=== PATIENT | female | born 1965 | race Hispanic/Latino ===

== ENCOUNTER → 2024-01-24 | Outpatient (CLI) | payer MEDICARE ==
[~2024-01-24] MED LIST: ACET-2743 PO; ACET1TAB12 PO; AEC81 PO; ALPR0.5T8 PO; CEPH500B PO; CETI10CA5 PO; DILT180C88 PO; FISH1CAP20 PO; GLUC-145 PO; LINA5TAB PO; METF-910 PO; MINO50CA6 PO; NITR0.4T50 SL; OLME20TA73 PO; OMEP20CA12 PO; PRAV10TA39 PO; SULF500T8 PO; SUVO15TA PO; TURM1POW MC; ZOLP5TAB2 PO; [UNRECOGNIZED DRUG - CODE] PO
[2024-01-24 09:52] LABS: CREATININE 0.8 mg/dL (0.5-1.0)
== END | disposition home or self-care (01) ==
LOC: LAB 09:09
PROVIDERS: ATTEND Surgery
DX: R14.0 Abdominal distension (gaseous) (principal)
CPT/HCPCS: 36415; 82565; 84520

== ENCOUNTER → 2024-01-28 | Outpatient (CLI) | payer MEDICARE ==
[~2024-01-28] MED LIST changes: +IOHEXOL-350 75 ML VIAL IV ONE
--- NOTE | 2024-01-28 12:54 | HMCIMG ---
CT ABDOMEN/PELVIS W/CONTRAST REASON: ABD DISTENSION COMPARISON: 11/14/2015 TECHNIQUE: Images are obtained from lung bases to the symphysis pubis following IV contrast, 75 cc Omnipaque 350. Oral contrast was administered as well. FINDINGS: Lung bases are clear. There are no focal liver lesions. There is a 4.2 cm cyst left kidney. There are normal-appearing kidneys.. Spleen and pancreas appear unremarkable. There has been a previous cholecystectomy. Bowel loops appear unremarkable. The appendix was not separately identified. There is no secondary CT evidence of acute appendicitis such as appendicolith or phlegmon. There is no evidence of free fluid or intraperitoneal air. There are no focal fluid collections. Aorta and retroperitoneum appear normal as do pelvic soft tissue structures. Uterus is absent. The anterior abdominal wall is intact. Osseous structures appear unremarkable. IMPRESSION: 1. Absent gallbladder and uterus. 2. 4.2 cm left renal cyst. 3. No acute finding in the abdomen or pelvis. CT was performed with one or more following dose reduction techniques: automated exposure control, adjustment of the mA and kv according to patient's size, or use of a iterative reconstruction technique.
== END | disposition home or self-care (01) ==
LOC: RAH 09:53
PROVIDERS: ATTEND Surgery
DX: N28.1 Cyst of kidney, acquired (principal); R14.0 Abdominal distension (gaseous)
CPT/HCPCS: 74177; Q9967